=== PATIENT | female | born 1960 | race Caucasian/White ===

== ENCOUNTER 2019-09-19 12:39 | Emergency (ER) | payer OTHER ==
[~2019-09-19] VITALS: Ht 157.5 cm; Wt 79.4 kg
[~2019-09-19 12:39] MED LIST: ADVAIR HFA115 MCG/21 INH; AMIGESIC750 MG PO; ASPIR 8181 MG PO; CALCIUM 600 +1 EAC1 PO; DUONEB 2.5-0.5 M3 ML INH; EPIPEN 2-P0.3 MG/0.3 SUBQ; FISH OIL 1,001000 M2 PO; GABAPENTIN600 M1 PO; IMITREX100 MG PO; LEVAQUIN 500 M500 M2 PO; MULTI VITAMIN1 EACH PO; PERCOCET PO; PREDNISONE 20 M20 MG PO; PRILOSEC 20 MG20 MG PO; ROBITUSSIN100 MG/53 PO; SIMVASTATIN40 MG PO; SINGULAIR 10 MG10 M1 PO; VENTOLIN HFA 1818 GM INH; XANAX 0.5 MG0.5 MG PO
[2019-09-19 13:26] LABS: ABSOLUTE NEUTROPHILS 5.1 thou/uL (1.4-8.2); BASOPHILS 0.1 % (0.0-2.0); EOSINOPHILS 0.1 % (0.0-3.0); HEMOGLOBIN 13.3 gm/dL (12.0-15.0); LYMPHOCYTES 10.4 % (24.0-44.0); MCH 31.6 pg (26.0-34.0); MCHC 34.1 g/dL (28.0-37.0); MCV 92.6 fL (80.0-100.0); MONOCYTES 2.9 % (1.0-8.0); PLATELET COUNT 202 thou/uL (150-400); POLYS 86.5 % (36.0-66.0); RBC 4.22 mil/uL (4.20-5.00); RDW 12.9 % (10.5-14.5); WBC 5.9 thou/uL (4.0-11.0)
[2019-09-19 13:34] LABS: CALCIUM 9.6 mg/dL (8.5-10.1); POTASSIUM 3.3 mmol/L (3.5-5.1)
[2019-09-19] MEDS ORDERED: DOXYCYCLINE 10100 MG PO (15:23)
[2019-09-19] MEDS ORDERED: AUGMENTIN 875-1 EACH PO (15:23)
[2019-09-19 15:40] VITALS: BP 120/42
--- NOTE | 2019-09-21 16:06 | EKG ---
[place] [address] [place] [address] ELECTROCARDIOGRAM REPORT Name: DALLASKIA [id number] Admission: 09/19/19 Attend Phys: Discharge: 09/19/19 Date of : 60 Report #: [id number] THIS REPORT FOR: //name// [facility] ED Test Date: 2019-09-19 Test Time: 13:00:42 Pat Name: KIA HAYNES Department: Room: Gender: F Glass Maker: EITAN : 1960 Requested By: Mera Morris Order Number: [id number] MD: Edgardo Monk Measurements Intervals [place] Rate: 91 P: 21 CA: 175 QRS: 12 QRSD: 92 T: 2 QT: 384 QTc: 473 Interpretive Statements Sinus rhythm Baseline wander in lead(s) V1 Compared to ECG 06/14/2014 19:56:15 T-wave abnormality no longer present Myocardial infarct finding no longer present Electronically Signed On 09-21-2019 16:05:53 BATT MACHINE OPERATOR by Edgardo Monk [email or web address] <ELECTRONICALLY SIGNED> By: Edgardo Monk MD 09/21/19 1605 1300 1300 Edgardo Monk MD /VENANCIO
== END 2019-09-19 15:50 | disposition home or self-care (01) ==
LOC: ER 12:39
PROVIDERS: Physician Assistant
DX: J18.9 Pneumonia, unspecified organism (principal); R05 Cough; J45.909 Unspecified asthma, uncomplicated; G43.909 Migraine, unspecified, not intractable, without status migrainosus; Z90.710 Acquired absence of both cervix and uterus; Z98.890 Other specified postprocedural states; Z90.49 Acquired absence of other specified parts of digestive tract; Z88.6 Allergy status to analgesic agent

== ENCOUNTER 2020-08-26 08:07 | Emergency (ER) | payer MEDICARE ==
[~2020-08-26] VITALS: Ht 157.5 cm; Wt 72.6 kg
[~2020-08-26 08:07] MED LIST changes: +AUGMENTIN 875-1 EACH PO; +DOXYCYCLINE 10100 MG PO
[2020-08-26 08:58] LABS: HEMATOCRIT 38.9 % (37.0-47.0); HEMOGLOBIN 13.4 gm/dL (12.0-15.0); MCHC 34.5 g/dL (28.0-37.0); MCV 89.9 fL (80.0-100.0); RBC 4.33 mil/uL (4.20-5.00); RDW 13.2 % (10.5-14.5); WBC 5.2 thou/uL (4.0-11.0)
[2020-08-26 09:21] LABS: ANION GAP 11 mmol/L (7-16); BUN 12 mg/dL (7-18); CALCIUM 9.1 mg/dL (8.5-10.1); CHLORIDE 102 mmol/L (98-107); CO2 24 mmol/L (21-32); CREATININE 1.1 mg/dL (0.6-1.0); GLUCOSE 91 mg/dL (74-106); POTASSIUM 4.4 mmol/L (3.5-5.1); SODIUM 137 mmol/L (136-145)
[2020-08-26 09:29] LABS: TROPONIN-I <0.06 ng/mL (<0.06)
[2020-08-26] MEDS ORDERED: ROBITUSSIN100 MG/53 PO (09:59)
[2020-08-26] MEDS ORDERED: LEVOFLOXACIN750 MG PO (09:59)
[2020-08-26 10:08] VITALS: BP 112/62
--- NOTE | 2020-08-29 07:28 | EKG ---
[facility] [place] [address] ELECTROCARDIOGRAM REPORT Name: KIA HAYNES Room #: [facility]#: [id number] Admission: 08/26/20 Attend Phys: Discharge: 08/26/20 Date of : 60 Report #: [id number] THIS REPORT FOR: cc: Stevenson Sethi Steven F. DO Santiago, Patrick MD [facility] THIS REPORT FOR: //name// [facility] ED Test Date: 2020-08-26 Test Time: 08:58:40 Pat Name: KIA HAYNES Department: Room: Gender: F Doctor Of Veterinary Medicine: [facility] : 1960 Requested By: Say Hernadez Order Number: [id number] MD: Gordon Blanco Measurements Intervals [place] Rate: 69 P: 30 UT: 177 QRS: 19 QRSD: 77 T: 24 QT: 423 QTc: 454 Interpretive Statements Sinus rhythm Low voltage, precordial leads Compared to ECG 09/19/2019 13:00:42 Low QRS voltage now present Electronically Signed On 08-29-2020 7:28:27 HORTICULTURE INSTRUCTOR by Gordon Blanco [email or web address] <ELECTRONICALLY SIGNED> By: Gordon Blanco MD, FACC 08/29/20 [id number] [id number] Gordon Blanco MD, [facility] /EPI
== END 2020-08-26 10:15 | disposition home or self-care (01) ==
LOC: ER 08:07
PROVIDERS: Emergency Medicine
DX: R05 Cough (principal); J45.909 Unspecified asthma, uncomplicated; G43.909 Migraine, unspecified, not intractable, without status migrainosus; Z90.710 Acquired absence of both cervix and uterus; Z79.2 Long term (current) use of antibiotics; Z79.899 Other long term (current) drug therapy; Z79.82 Long term (current) use of aspirin; Z88.8 Allergy status to other drugs, medicaments and biological substances

== ENCOUNTER 2020-08-29 08:15 | Emergency (ER) | payer MEDICARE ==
[~2020-08-29] VITALS: Ht 157.5 cm; Wt 72.6 kg
[~2020-08-29 08:15] MED LIST changes: +LEVOFLOXACIN750 MG PO
[2020-08-29 09:03] LABS: HEMATOCRIT 40.1 % (37.0-47.0); HEMOGLOBIN 13.8 gm/dL (12.0-15.0); MCH 30.8 pg (26.0-34.0); MCHC 34.4 g/dL (28.0-37.0); MCV 89.3 fL (80.0-100.0); RBC 4.49 mil/uL (4.20-5.00); RDW 13.2 % (10.5-14.5); WBC 4.6 thou/uL (4.0-11.0)
[2020-08-29 09:15] LABS: ANION GAP 12 mmol/L (7-16); BUN 11 mg/dL (7-18); CALCIUM 8.9 mg/dL (8.5-10.1); CHLORIDE 97 mmol/L (98-107); CO2 22 mmol/L (21-32); CREATININE 1.2 mg/dL (0.6-1.0); GLUCOSE 89 mg/dL (74-106); SODIUM 131 mmol/L (136-145)
[2020-08-29 09:20] LABS: TROPONIN-I <0.06 ng/mL (<0.06)
[2020-08-29 09:46] VITALS: BP 110/58
[2020-08-29] MEDS ORDERED: ROBITUSSIN100 MG/53 PO (10:23)
== END 2020-08-29 10:42 | disposition home or self-care (01) ==
LOC: ER 08:15
PROVIDERS: Emergency Medicine
DX: R05 Cough (principal); J45.909 Unspecified asthma, uncomplicated; G43.909 Migraine, unspecified, not intractable, without status migrainosus; Z90.49 Acquired absence of other specified parts of digestive tract; Z90.710 Acquired absence of both cervix and uterus; Z79.2 Long term (current) use of antibiotics; Z79.899 Other long term (current) drug therapy; Z79.82 Long term (current) use of aspirin; Z88.8 Allergy status to other drugs, medicaments and biological substances; Z20.828 Contact with and (suspected) exposure to other viral communicable diseases